=== PATIENT | female | born 1945 | race Caucasian/White ===

== ENCOUNTER 2018-02-01 10:38 | Inpatient (IN) | payer MEDICARE, OTHER, SELFPAY ==
[2018-01-25 13:55] VITALS: BMI 37.0
[2018-02-01] VITALS (15 sets, daily range): BP systolic 115–138; BP diastolic 57–89; PULSE 64–77; RESP 9–20; TEMP 36–37.2; O2SAT 18–100; BMI 35.9
[2018-02-01] MEDS: LACTATED RINGERS 1,000 ML 42 ML IV ×2 (11:01→12:51)
[2018-02-01] MEDS: VANCOMYCIN 1,000 MG/200 ML FROZ.PIGGY 133.333 MG IV (11:02)
--- NOTE | 2018-02-01 11:17 | PM.PREOP ---
Pre-operative Note Interval Note Pre-op Check: History & Physical Reviewed by Physician
--- NOTE | 2018-02-01 11:17 | PM.OP.1 ---
Operative Date/Time/Diagnoses - Date of procedure: 02/01/18 Time of procedure: 11:53 Pre-op diagnosis: Left hip OA Post-op diagnosis: same Procedure & Clinicians Procedure: Left total hip Same procedure as scheduled: Yes Indications: The patient has had progressively worsening left hip pain with radiographic changes consistent with arthritis. Non-operative management has failed and the patient has requested total hip replacement. The risks, benefits and alternatives to surgery were discussed with the patient prior to proceeding. Risks discussed included, but were not limited to, failure to relieve pain, leg length discrepancy, dislocation, stiffness, infection, nerve damage, deep venous thrombosis, pulmonary embolism, stroke, coma, heart attack, permanent paralysis and , as well as the potential need for eventual revision of the prosthetic. Surgeon: Monika Martines [employer]s Assistant: Jefferson Adams Anesthesia Type: Spinal Operative Notes Findings: Severe left hip OA, adequate stability Closure Type: primary Specimen(s): none sent Implants & Drains: Martines and Nephew anthology 7 standard, R3 52, + 0 Applied: drain(s) Estimated Blood Loss (mL): 300 Blood products transfused: none Procedure in detail: The patient was seen in the pre-operative area, where the patient identified the left hip as the operative site and this was marked with my initials. The patient received pre-operative antibiotics and was taken to the operating room and placed on the operative table in the right lateral decubitus position after satisfactory anesthesia. A inspector timers out was performed. The left leg was prepared from the ankle to the iliac crest with ChloroPrep in the usual fashion and draped through sterile drapes. The hip was approached through an approximately 20 cm incision centered over the greater trochanter and curving gently posteriorly as it went proximally. This was carried sharply to the fascia kristin, which was divided and retracted with a self retaining retractor. The trochanteric bursa was excised with care being taken to avoid the sciatic nerve, which was identified and protected throughout the case. The short external rotators were incised and the capsulomuscular flap was raised and tagged for later repair. The hip was dislocated, and a femoral neck osteotomy performed approximately 15 mm above the lesser trochanter. Retractors were placed around the femur. The canal was opened with a box cutting osteotome, followed by a T handled reamer and a lateralizing reamer. The chili pepper broach was then used, followed by sequential broaching until there was good stability of the broach in the femur. Retractors were placed to expose the acetabulum. The labrum and central soft tissues were removed. Reaming was performed initially going up in 2 mm increments, then 1 mm increments until good bite was obtained with an odd sized reamer. The cup 1 mm larger than the last reamer was then inserted using the appropriate anteversion guides. A trial neutral liner was placed. The broach was placed in the canal. A trial head and neck were then placed and the hip relocated and checked for leg length and stability. An intraoperative film confirmed the component position and no evidence of fracture. The patient was stable in the position of sleep, of squatting, and could be put through a range of motion with 45 degrees internal rotation without dislocation. At 90 degrees flexion, internal rotation to 70 was possible before dislocation. This was felt to be satisfactory and the appropriate components were opened, and the trials were removed. The acetabular liner was impacted into position. The final stem was then impacted into the prepared femoral canal. A brief Betadine soak was performed while trialing with head options. The hip was meticulously irrigated with normal saline. Finally the femoral head was impacted onto the stem. The acetabulum was cleared of all material and the hip relocated one final time. The capsulomuscular flap was then repaired to the greater trochanter though an awl hole using the tag sutures. The short external rotators were repaired with a black braided nylon. A deep drain was placed and brought out anteriorly. The fascia kristin was closed with black braided nylon. The subcutaneous layer was closed with barbed sutures and SteriStrips. An Aquacel Ag dressing was applied and the patient was taken to recovery having tolerated the procedure well. Complications: none Condition: stable Disposition: Acute Care Plan for aftercare: The patient will be maintained on a standard total hip replacement protocol with weight bearing as tolerated and posterior hip precautions. The patient will receive aspirin and sequential compression devices for DVT prophylaxis. The patient will be discharged home when safe for the home environment.
[2018-02-01] MEDS: CEFAZOLIN 2 GM/100 ML FROZ.PIGGY IV ×2 (11:50→21:12)
--- NOTE | 2018-02-01 12:42 | SUR.OPER ---
Right Lateral on padded OR bed. Gel axillary roll. Arms secured on padded armboard with pillows supporting top arm. gel pads under down arm. Padded hip positioner braces x4 - anterior and posterior chest and pelvis. Additional gel pad used anterior pelvis. Gel pad under bottom leg from knee to foot and secured with tape over sheet.
[2018-02-01] MEDS: BUPIVACAINE 0.25% W/ EPI 50 ML VIAL INJ (12:47)
[2018-02-01] MEDS: TRANEXAMIC ACID 1,000 MG VIAL 1000 MG INJ ×2 (12:48→13:45)
[2018-02-01] MEDS: SODIUM CHLORIDE IRRIG SOLUTION 250 ML, EPINEPHrine 1 MG IRR (12:48)
[2018-02-01] MEDS: BUPIVACAINE LIPOSOME 266 MG/20 ML VIAL INJ (12:48)
[2018-02-01] MEDS: POVIDONE-IODINE 15 ML, SODIUM CHLORIDE 0.9% 250 ML TOP (12:49)
--- NOTE | 2018-02-01 13:00 | DI.RAD.S_ITS ---
PROCEDURE: XR PELVIS 1-2V INDICATIONS: INNER OP HIP (PRACTICE) TECHNIQUE: Intra-operative view of the pelvis and hip acquired. [facility] [place], XR PELVIS WITH BILATERAL LATERAL HIPS, 10/18/2017, 14:42. FINDINGS: Bones: Intraoperative devices prior to placement of arthroplasty prostheses are in expected positions. No fractures or suspicious bony lesions. Soft tissues: Overlying surgical retractors are present, along with other intraoperative changes. IMPRESSION: Intraoperative device in anatomic alignment. Dictated by: Carolina Davenport M.D. on 02/01/2018 at 16:15 Approved by: Carolina Davenport M.D. on 02/01/2018 at 16:16
--- NOTE | 2018-02-01 13:00 | DI.RAD.S_ITS ---
PROCEDURE: XR HIP W PEL IF DONE LT 2V INDICATIONS: 73 year-old female with left hip arthroplasty. TECHNIQUE: AP pelvis and lateral view of the left hip acquired. COMPARISON: [facility], CR, XR PELVIS 1-2V, 02/01/2018, 13:16. [facility] [place], CR, XR PELVIS WITH BILATERAL LATERAL HIPS, 10/18/2017, 14:42. [facility] [place], CR, XR PELVIS WITH BILATERAL LATERAL HIPS, 06/16/2017, 8:00. [facility], CR, XR HIP 2 VIEWS LEFT, 07/21/2015, 14:37. [facility], CR, XR PELVIS WITH BILATERAL LATERAL HIPS, 08/19/2014, 14:08. FINDINGS: Bones: Patient is status post noncemented left hip arthroplasty, with hardware components in expected positions. The hip joint appears congruent. The visualized bony structures appear intact. Soft tissues: Overlying postoperative changes are noted, including a surgical drain. No suspicious soft tissue densities. IMPRESSION: Status post left hip arthroplasty, with hardware components in expected positions. Dictated by: Jerome Santana M.D. on 02/01/2018 at 16:51 Approved by: Jerome Santana M.D. on 02/01/2018 at 16:54
--- NOTE | 2018-02-01 14:15 | SUR.OPER ---
red-purple spots noted on left groin when drapes were removed. area not opened or raised. reddened indented area also noted on right pelvic area at the same time. due to pelvic positioning device. Dr. Martines notified.
[2018-02-01] MEDS: fentaNYL 100 MCG/2 ML INJ 50 MCG IV (14:51)
--- NOTE | 2018-02-01 15:10 | SUR.PHASEI ---
REPORT CALLED TO RUSLAN WOLFF ON ACUTE CARE FLOOR AT APPROX 1430. PT IN STABLE CONDITION, VSS. IV SITE CLEAR. SURGICAL SITE C/D/I. HEMOVAC INTACT AND DRAINING RED BLOOD. PT ABLE TO MOVE TOES ON LOWER EXTREMITY AND DULL SENSTATION RELATED TO SPINAL. SURGICAL EXTREMITY WARM TO TOUCH, +PULSE AND CAP REFILL WNL. PT TOLERATING ICE CHIPS WITHOUT ANY DIFFICULTLY. PT DENIES ANY NAUSEA. PT STATES PAIN TOLERABLE AT THIS TIME. PT SITTING UP AND TALKING TO RN. PT TRANSFERED TO ACUTE CARE FLOOR AT THIS TIME BY RUSLAN REGAN IN OPD.
[2018-02-01] MEDS: OXYCODONE IR 10 MG TABLET PO ×2 (17:02→21:18)
[2018-02-01] MEDS: LACTATED RINGERS 1,000 ML 100 ML IV (17:02)
[2018-02-01] MEDS: ATORVASTATIN 20 MG TABLET PO (21:12)
[2018-02-01] MEDS: ASPIRIN EC 81 MG TABLET PO (21:12)
[2018-02-01] MEDS: SENNOSIDES 8.6 MG TABLET 17.2 MG PO (21:12)
[2018-02-01] MEDS: LATANOPROST 0.005% OPHTH 2.5 ML 1 DROPS EYE-BOTH (21:13)
[2018-02-01] MEDS: DOCUSATE 100 MG CAPSULE PO (21:13)
[2018-02-01] MEDS: TRAMADOL 50 MG TABLET PO (23:29)
[2018-02-02] VITALS (7 sets, daily range): BP systolic 118–141; BP diastolic 66–77; PULSE 77–94; RESP 16–20; TEMP 36.7–37.2; O2SAT 94–99
[2018-02-02] MEDS: ONDANSETRON 4 MG/2 ML INJ IV (01:50)
--- NOTE | 2018-02-02 02:05 | PC.NURSE ---
C/O nausea and had 300cc of bile green emesis. Medicated with ZOFRAN 4MG IV as ordered. patient following hip precautions. Patient has excellent understanding of hip precautions.
[2018-02-02] MEDS: OXYCODONE IR 10 MG TABLET PO ×2 (03:39→09:12)
[2018-02-02] MEDS: METOCLOPRAMIDE 10 MG/2 ML INJ IV (03:59)
[2018-02-02] MEDS: LACTATED RINGERS 1,000 ML 100 ML IV (03:59)
[2018-02-02] MEDS: CEFAZOLIN 2 GM/100 ML FROZ.PIGGY IV (04:42)
[2018-02-02 05:48] LABS: Hematocrit 34.3 % (36-46); Hemoglobin 11.3 g/dL (12.0-16.0)
[2018-02-02] MEDS: ONDANSETRON 4 MG ODT PO ×2 (05:59→13:18)
[2018-02-02] MEDS: VENLAFAXINE ER 75 MG CAP PO (08:40)
[2018-02-02] MEDS: DOCUSATE 100 MG CAPSULE PO ×2 (08:40→20:46)
[2018-02-02] MEDS: ASPIRIN EC 81 MG TABLET PO ×2 (08:41→20:46)
[2018-02-02] MEDS: ACETAMINOPHEN 325 MG TABLET 650 MG PO (08:41)
--- NOTE | 2018-02-02 10:27 | PM.PNPO.1 ---
Subjective Date Patient Seen: 02/02/18 Time Patient Seen: 10:27 Interval history: Patient is s/p LT CHRISTINE by Dr. Martines. PD 1. Patient has a lot of N/V last night. Under control this am. Still having numbness from knee to mid hamilton area. Cannot lift leg. Pt wants to go to SNF after d/c from hospital and discharge planning is aware and working on SNF placement. Able to tolerate foods and liquids. Exam Vital Signs (past 8 hours): - 02/02/18 04:00 02/02/18 08:00 Temperature 98.6 F 98.6 F Pulse Rate 86 87 Respiratory Rate 16 16 Blood Pressure 118/69 127/71 H Pulse Oximetry 98 97 Oxygen Delivery Method Room Air Oxygen Flow Rate 1 Narrative Exam Narrative: Pt in chair. A&O x3. LT hip mod swelling. Aquacel dressing CDI. Numbness from below knee to mid hamilton. Able to dorsiflex and plantarflex ankle with full sensation in ankle. Not able to do leg lift. Jake calves soft and nontender. Hemovac drain dry. ABD soft and nondistended in 4 quadrants. Objective Labs Result Diagrams: 02/02/18 05:18 Labs: Laboratory Results - last 24 hr 02/02/18 05:18 Hgb 11.3 L Hct 34.3 L Assessment & Plan Post-op Postoperative Procedures Operation Date: 02/01/18 12:45 Actual Procedures Side Surgeon p Total Hip Arthroplasty Left Monika A MD Conrad s/p Lt CHRISTINE. PD 1. Pt to mobilize with PT. Hemovac drain d/c. Continue DVT prophylaxis with ASA BID. Fe and Vt c ordered. Plan to d/c to SNF if bed availble on Monday. Time Spent With Patient less than 15 minutes Quality VTE Deep Vein Thrombosis/Pulmonary Embolism Present on Admission: No
--- NOTE | 2018-02-02 10:48 | CM.DANOTE ---
DCP: assessment: Case received, EMR reviewed and met with pt, her sister and her friend. Introduced self and role. Pt is a 73 year old female who admitted yesterday for a planned L CHRISTINE. Surgeon: Dr. Rona Martines Payer: Medicare and CBIT A/S. PCP: Dr. Lynne Marinelli. Pt states that she lives alone and has been planning for rehab at snf level before she returns home. Snf choice list: discussed: She notes she researched and toured snf and wishes [facility] is there is a bed available. She also says that she knows Dr. Martines does not think this is best but says I do have the benefit with my insurance and I wish to use this. It has been my after hospital plan all along. Spoke with Ortho ERNA Osborn. She met with pt today, says to plan on snf d/c for his patient. Agrees to OT eval and treat (order placed now). Referral is into [facility]/Nick[facility]/business office and [facility]. Both are reviewing and will get back to this DCPlanner with decision by noon. Will update pt accordingly. P: [facility], pending acceptance Need: [facility] 02/04/18 or >
[2018-02-02] MEDS: ASCORBIC ACID 500 MG TABLET PO (10:49)
[2018-02-02] MEDS: FERROUS SULFATE 325 MG TABLET PO (10:49)
--- NOTE | 2018-02-02 11:00 | PT.IIE ---
Current Diagnoses Bilateral primary osteoarthritis of hip (02/01/18) Surgery Performed Operation Date: 02/01/18 12:45 Actual Procedures p Total Hip Arthroplasty(Left) - Monika Martines MD Surgical History (Last Updated 01/25/18 @ 14:20 by Chanda Vang RN) H/O: section (Acute) Hx of tonsillectomy (Acute) Medical History (Last Updated 01/25/18 @ 14:20 by Chanda Vang RN) Arthritis (Acute) Cataracts, bilateral (Acute) DDD (degenerative disc disease) (Acute) Depression (Acute) Diverticulitis (Acute) Glaucoma (Acute) Hyperlipidemia (Acute) Kidney stone (Acute) Low back pain (Acute) Skin cancer (Acute) Physical Therapy Inpatient Evaluation/Re-Eval M1 PT/OT-IP Prior Functional Status Start: 02/02/18 13:04 Freq: NEEDED Status: Active Protocol: Document 02/02/18 11:00 AB (Rec: 02/02/18 13:10 [id number]) Medical Review Prior Functional Status Medical History Reviewed Yes Mobility and Gait pt stated that she is independent with all mobilities and ambulation without AD. Prior Functional Level (Other details) pt was still able to drive Social History Household Members none Living Arrangements House Number of Floors (Floors) One Floor Number of Stairs To Enter/Railing? 1 step entry Home Environment High Toilet Tub/Shower Home Equipment Four Wheel Walker Straight Cane Grab Bars Near Toilet Employment Status Retired M2 PT-IP Current Condition Start: 02/02/18 13:04 Freq: NEEDED Status: Active Protocol: Document 02/02/18 11:00 AB (Rec: 02/02/18 13:10 [id number]) Physical Therapy Current Condition Current Condition Evaluation Date 02/02/18 Treatment Diagnosis s/p L CHRISTINE Onset Date 02/01/18 Precautions Posterior Hip Precautions No Hip Flexion > 90 degrees No Hip Internal Rotation No Hip Adduction Weight Bearing Status Weight Bearing Status Weight Bear as Tolerated M3 PT-IP Subjective Start: 02/02/18 13:04 Freq: NEEDED Status: Active Protocol: Document 02/02/18 11:00 AB (Rec: 02/02/18 13:10 [id number]) Subjective Physical Therapy Visit Type Type Initial Evaluation Visit Start Time 11:00 Visit Stop Time 11:39 Total Visit Minutes 39 Number of WINDOWS SERVER SPECIALIST Visits 0 Physical Therapy Visit Comments Patient Comments i am still numb on my LLE M4 PT-IP Mobility and Gait Start: 02/02/18 13:04 Freq: NEEDED Status: Active Protocol: Document 02/02/18 11:00 AB (Rec: 02/02/18 13:10 [id number]) PT-Bed Mobility Assessment Supine to Sit Supine to Sit Moderate Assistance PT-Transfer Assessment Sit to and From Stand Sit to and from Stand Minimal Assistance Equipment Transfer Assistive Device Gait Belt Front Wheeled Walker Transfers Transfer Destination Bedside Commode Transfer Technique Stand Step Pivot Transfer Ability Level of Assist Minimal Assistance Gait Assessment Gait Gait Assistance Required: Minimum Assistance Distance (Feet) (feet) 15 Able to Maintain Weight Bearing Status Yes During Gait Assistive Devices Assistive Device Gait Belt Front Wheeled Walker Orthotic/Prosthetic Devices or Brace: No Gait Deviations General Gait Pattern Antalgic Decreased Stride Length Decreased Feet Clearance Factors Limiting Gait Function Factors Limiting Gait Function Decreased Activity Tolerance Decreased Strength Limited Range of Motion Pain Poor Balance Poor Safety Awareness PT-Balance Assessment Sitting Balance and Reactions Static Sitting Balance Ability Good Dynamic Sitting Balance Ability Good Standing Balance and Reactions Static Standing Balance Ability Fair Dynamic Standing Balance Ability Fair M5 PT-IP Objective Assessments Start: 02/02/18 13:04 Freq: NEEDED Status: Active Protocol: Document 02/02/18 11:00 AB (Rec: 02/02/18 13:10 [id number]) Orientation Orientation/Cognition Level of Alertness Alert Orientation Name Age Birthday Month Date Year Day of Week Place Situation Safety Awareness Decreased Safety Awareness Gross Range of Motion Lower Extremity ROM Assessment Within Functional Limits Strength Lower Extremity Strength Assessment Left Impaired Knee 3+/5 Sensation Assessment Sensation Sensation Description Numbness Comments Sensation Comments c/o LLE numbness from knee down to ankle M6 PT-IP Treatment Start: 02/02/18 13:04 Freq: NEEDED Status: Active Protocol: Document 02/02/18 11:00 AB (Rec: 02/02/18 13:10 AB [id number]) Physical Therapy Treatment Education Education Provided Precautions Weight Bearing Status Post-Op Packet Safety M7 PT-IP Assessment and Plan Start: 02/02/18 13:04 Freq: NEEDED Status: Active Protocol: Document 02/02/18 11:00 AB (Rec: 02/02/18 13:10 [id number]) PT Summary Assessment and Plan Potential Rehabilitation Potential Fair Status of Condition at Evaluation Evolving Summary Impairments Pain ROM Strength Balance Coordination Sensation Tone Cognition Bed Mobility Transfers Gait Activity Tolerance Assessment Summary pt requiring one person assist with mobility. pt lives alone and does not have anybody to assist her at home. pt will need SNF rehab to improve mobility and independence prior to d/c home . Goals Bed Mobility Goal Standby Assistance Transfer Goal Standby Assistance Gait Goal Standby Assistance Gait Distance 100 Other Goals up/down 1 step using FWW Days to Meet Goals 3 Frequency of Treatment Frequency Of Treatment Twice a Day Treatment Plan Physical Therapy Treatment Plan Bed Mobility Training Transfer Training Gait Training Therapeutic Exercise Balance Retraining Post Op Education Discharge Planning Hot or Cold Pack Neuromuscular Re-ed Coordination Retraining Manual Therapy Other Recommendations and Next Treatment ambulation Focus Recommendations To Nursing Amount of Assist Needed 1 Person Assist Discharge Recommendations PT Discharge Recommendations SNF Rehab Equipment Needed for Home Before FWW if pt is going home Discharge
--- NOTE | 2018-02-02 11:05 | PC.NURSE ---
AM NOTE - alert, states did not sleep well last night, episodes nausea and emesis and pain lle, reports 7 on scale 0/10 and then when assisted up to void, increased to 11, ra 95%, hr 86, continues with some numbness lle from mid calf to just above her l knee, able wiggle toes and ankle wave, skin pink, aquacell dsg with few spots serosang, hemovac unable to compress and some leakage around site, in this am and per discussion, hemovac was dc'd, discussed taking medication with food, no nausea with breakfast and ate portion, given oxycodone 10mg po with yogurt and pt liudmila meds w/o further nausea and reported pain much improved to 4 on scale 0/10, sitting in chair more comfortably, visiting with friends.
[2018-02-02] MEDS: OXYCODONE IR 5 MG TABLET 10 MG PO ×4 (13:22→23:52)
--- NOTE | 2018-02-02 16:28 | OT.IP.TRT ---
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
--- NOTE | 2018-02-02 16:56 | PT.IPTN ---
Current Diagnoses Bilateral primary osteoarthritis of hip (02/01/18) Surgery Performed Operation Date: 02/01/18 12:45 Actual Procedures p Total Hip Arthroplasty(Left) - Monika Martines MD Physical Therapy Treatment Note M2 PT-IP Current Condition Start: 02/02/18 13:04 Freq: NEEDED Status: Active Protocol: Document 02/02/18 11:00 AB (Rec: 02/02/18 13:10 AB [id number]) Physical Therapy Current Condition Current Condition Evaluation Date 02/02/18 Treatment Diagnosis s/p L CHRISTINE Onset Date 02/01/18 Precautions Posterior Hip Precautions No Hip Flexion > 90 degrees No Hip Internal Rotation No Hip Adduction Weight Bearing Status Weight Bearing Status Weight Bear as Tolerated M3 PT-IP Subjective Start: 02/02/18 13:04 Freq: NEEDED Status: Active Protocol: Document 02/02/18 16:55 GGD (Rec: 02/02/18 16:56 GGD [id number]) Subjective Physical Therapy Visit Type Type Patient Refusal Notes States that she is tired and hasn't slept in days. She would like to wait until later to get up. Recommendations To Nursing Amount of Assist Needed 1 Person Assist Discharge Recommendations PT Discharge Recommendations SNF Rehab Equipment Needed for Home Before FWW if pt is going home Discharge
[2018-02-02] MEDS: ATORVASTATIN 20 MG TABLET PO (20:46)
[2018-02-02] MEDS: LATANOPROST 0.005% OPHTH 2.5 ML 1 DROPS EYE-BOTH (20:46)
[2018-02-02] MEDS: SENNOSIDES 8.6 MG TABLET 17.2 MG PO (20:47)
[2018-02-03] MEDS: OXYCODONE IR 5 MG TABLET PO ×2 (03:08→08:24)
[2018-02-03] MEDS: ACETAMINOPHEN 325 MG TABLET 650 MG PO (03:09)
[2018-02-03 03:24] VITALS: BP 122/69; PULSE 87; RESP 20; TEMP 37.1; O2SAT 94
[2018-02-03] MEDS: OXYCODONE IR 5 MG TABLET 10 MG PO ×2 (07:40→13:03)
[2018-02-03 08:00] VITALS: BP 134/75; PULSE 88; RESP 16; TEMP 36.6; O2SAT 97
[2018-02-03] MEDS: VENLAFAXINE ER 75 MG CAP PO (08:18)
[2018-02-03] MEDS: IBUPROFEN 400 MG TABLET PO (08:18)
[2018-02-03] MEDS: FERROUS SULFATE 325 MG TABLET PO (08:18)
[2018-02-03] MEDS: DOCUSATE 100 MG CAPSULE PO ×2 (08:18→20:31)
[2018-02-03] MEDS: ASPIRIN EC 81 MG TABLET PO ×2 (08:18→20:31)
[2018-02-03] MEDS: ASCORBIC ACID 500 MG TABLET PO (08:18)
--- NOTE | 2018-02-03 09:40 | PT.IPTN ---
Current Diagnoses Bilateral primary osteoarthritis of hip (02/01/18) Surgery Performed Operation Date: 02/01/18 12:45 Actual Procedures p Total Hip Arthroplasty(Left) - Monika Martines MD Physical Therapy Treatment Note M2 PT-IP Current Condition Start: 02/02/18 13:04 Freq: NEEDED Status: Active Protocol: Document 02/02/18 11:00 AB (Rec: 02/02/18 13:10 AB [id number]) Physical Therapy Current Condition Current Condition Evaluation Date 02/02/18 Treatment Diagnosis s/p L CHRISTINE Onset Date 02/01/18 Precautions Posterior Hip Precautions No Hip Flexion > 90 degrees No Hip Internal Rotation No Hip Adduction Weight Bearing Status Weight Bearing Status Weight Bear as Tolerated M3 PT-IP Subjective Start: 02/02/18 13:04 Freq: NEEDED Status: Active Protocol: Document 02/03/18 09:40 GGD (Rec: 02/03/18 12:12 GGD [email or web address]) Subjective Physical Therapy Visit Type Type Treatment Note Visit Start Time 09:15 Visit Stop Time 09:40 Total Visit Minutes 25 Number of FELTING MACHINE OPERATOR Visits 1 Physical Therapy Visit Comments Patient Comments Pt states that the numbness has gone away. Therapy Pain Assessment Pain When Pain Assessed At Rest Pain Present Pain Present Denied Pain M4 PT-IP Mobility and Gait Start: 02/02/18 13:04 Freq: NEEDED Status: Active Protocol: Document 02/03/18 09:40 GGD (Rec: 02/03/18 12:12 GGD [email or web address]) PT-Bed Mobility Assessment Supine to Sit Supine to Sit Moderate Assistance Sit to Supine Sit to Supine Minimal Assistance Scooting Scooting to Edge of Bed Standby Assistance PT-Transfer Assessment Sit to and From Stand Sit to and from Stand Contact Guard Assistance Use of Upper Extremities Equipment Transfer Assistive Device Gait Belt Front Wheeled Walker Transfers Transfer Destination Bed Toilet Gait Assessment Gait Gait Assistance Required: Contact Guard Assist Distance (Feet) (feet) 30 Assistive Devices Assistive Device Gait Belt Front Wheeled Walker Orthotic/Prosthetic Devices or Brace: No Gait Deviations General Gait Pattern Antalgic Decreased Stride Length Decreased Feet Clearance Factors Limiting Gait Function Factors Limiting Gait Function Decreased Activity Tolerance Decreased Strength Limited Range of Motion Pain M5 PT-IP Objective Assessments Start: 02/02/18 13:04 Freq: NEEDED Status: Active Protocol: Document 02/02/18 11:00 AB (Rec: 02/02/18 13:10 AB [id number]) Orientation Orientation/Cognition Level of Alertness Alert Orientation Name Age Birthday Month Date Year Day of Week Place Situation Safety Awareness Decreased Safety Awareness Gross Range of Motion Lower Extremity ROM Assessment Within Functional Limits Strength Lower Extremity Strength Assessment Left Impaired Knee 3+/5 Sensation Assessment Sensation Sensation Description Numbness Comments Sensation Comments c/o LLE numbness from knee down to ankle M6 PT-IP Treatment Start: 02/02/18 13:04 Freq: NEEDED Status: Active Protocol: Document 02/03/18 09:40 GGD (Rec: 02/03/18 12:12 GGD [email or web address]) Physical Therapy Treatment Exercises Exercises Ankle Pumps Gluteal Sets Quad Sets Heel Slides Education Education Provided Precautions M7 PT-IP Assessment and Plan Start: 02/02/18 13:04 Freq: NEEDED Status: Active Protocol: Document 02/03/18 09:40 GGD (Rec: 02/03/18 12:12 GGD [email or web address]) PT Summary Assessment and Plan Summary Assessment Summary Pt improving with mobility. She needs assist with bed mobility. Frequency of Treatment Frequency Of Treatment Twice a Day Treatment Plan Physical Therapy Treatment Plan Bed Mobility Training Transfer Training Gait Training Therapeutic Exercise Balance Retraining Post Op Education Discharge Planning Other Recommendations and Next Treatment Progress gait. Focus Recommendations To Nursing Amount of Assist Needed 1 Person Assist Discharge Recommendations PT Discharge Recommendations SNF Rehab Equipment Needed for Home Before FWW if pt is going home Discharge
[2018-02-03 12:00] VITALS: BP 131/73; PULSE 85; RESP 16; TEMP 36.3; O2SAT 95
--- NOTE | 2018-02-03 12:24 | PM.PNPO.1 ---
Subjective Date Patient Seen: 02/03/18 Time Patient Seen: 12:24 Interval history: Hospital day 3, postop day 2 following left posterior total hip arthroplasty by Dr. Martines. Patient remained stable postoperatively. Patient does live alone and is anticipating going to SNF. PT also feels patient would benefit from SNF because of limited function. Did have some left leg weakness yesterday that is improved today. Using oxycodone for pain. Exam Vital Signs (past 8 hours): - 02/03/18 08:00 Temperature 97.9 F Pulse Rate 88 Respiratory Rate 16 Blood Pressure 134/75 H Pulse Oximetry 97 Oxygen Delivery Method Room Air Oxygen Flow Rate 1 Narrative Exam Narrative: Alert, oriented no acute distress resting in bed. Legs. Aquacel dressing to the left hip is dry without drainage or inflammation. No calf pain or swelling. Pulses symmetrical. Objective Labs Result Diagrams: 02/02/18 05:18 Assessment & Plan Post-op Postoperative Procedures Operation Date: 02/01/18 12:45 Actual Procedures Side Surgeon p Total Hip Arthroplasty Left Monika Martines MD Plan: Patient will continue work with physical therapy today. Anticipate discharge to SNF tomorrow if stable. Time Spent With Patient less than 15 minutes Quality VTE Deep Vein Thrombosis/Pulmonary Embolism Present on Admission: No
[2018-02-03] MEDS: ONDANSETRON 4 MG ODT PO (15:08)
[2018-02-03 15:59] VITALS: BP 121/76; PULSE 79; RESP 16; TEMP 36.7; O2SAT 96
[2018-02-03] MEDS: METOCLOPRAMIDE 10 MG/2 ML INJ IV (16:34)
--- NOTE | 2018-02-03 16:54 | PT.IPTN ---
Current Diagnoses Bilateral primary osteoarthritis of hip (02/01/18) Surgery Performed Operation Date: 02/01/18 12:45 Actual Procedures p Total Hip Arthroplasty(Left) - Monika Martines MD Physical Therapy Treatment Note M2 PT-IP Current Condition Start: 02/02/18 13:04 Freq: NEEDED Status: Active Protocol: Document 02/02/18 11:00 AB (Rec: 02/02/18 13:10 AB [id number]) Physical Therapy Current Condition Current Condition Evaluation Date 02/02/18 Treatment Diagnosis s/p L CHRISTINE Onset Date 02/01/18 Precautions Posterior Hip Precautions No Hip Flexion > 90 degrees No Hip Internal Rotation No Hip Adduction Weight Bearing Status Weight Bearing Status Weight Bear as Tolerated M3 PT-IP Subjective Start: 02/02/18 13:04 Freq: NEEDED Status: Active Protocol: Document 02/03/18 16:45 GGD (Rec: 02/03/18 16:54 GGD [email or web address]) Subjective Physical Therapy Visit Type Type Treatment Note Visit Start Time 16:20 Visit Stop Time 16:45 Total Visit Minutes 25 Number of [employer] Visits 2 Physical Therapy Visit Comments Patient Comments Pt states she doing a little better. Therapy Pain Assessment Pain When Pain Assessed At Rest Pain Present Pain Present Pain Reported Location Left Hip Intensity 4 M4 PT-IP Mobility and Gait Start: 02/02/18 13:04 Freq: NEEDED Status: Active Protocol: Document 02/03/18 16:45 GGD (Rec: 02/03/18 16:54 GGD [email or web address]) PT-Bed Mobility Assessment Supine to Sit Supine to Sit Minimal Assistance Sit to Supine Sit to Supine Minimal Assistance Scooting Scooting to Edge of Bed Standby Assistance PT-Transfer Assessment Sit to and From Stand Sit to and from Stand Contact Guard Assistance Use of Upper Extremities Equipment Transfer Assistive Device Gait Belt Front Wheeled Walker Transfers Transfer Destination Bed Toilet Gait Assessment Gait Gait Assistance Required: Contact Guard Assist Distance (Feet) (feet) 30 Assistive Devices Assistive Device Gait Belt Front Wheeled Walker Orthotic/Prosthetic Devices or Brace: No Gait Deviations General Gait Pattern Antalgic Decreased Stride Length Decreased Feet Clearance Factors Limiting Gait Function Factors Limiting Gait Function Decreased Activity Tolerance Decreased Strength Limited Range of Motion Pain M5 PT-IP Objective Assessments Start: 02/02/18 13:04 Freq: NEEDED Status: Active Protocol: Document 02/02/18 11:00 AB (Rec: 02/02/18 13:10 AB [id number]) Orientation Orientation/Cognition Level of Alertness Alert Orientation Name Age Birthday Month Date Year Day of Week Place Situation Safety Awareness Decreased Safety Awareness Gross Range of Motion Lower Extremity ROM Assessment Within Functional Limits Strength Lower Extremity Strength Assessment Left Impaired Knee 3+/5 Sensation Assessment Sensation Sensation Description Numbness Comments Sensation Comments c/o LLE numbness from knee down to ankle M6 PT-IP Treatment Start: 02/02/18 13:04 Freq: NEEDED Status: Active Protocol: Document 02/03/18 16:45 GGD (Rec: 02/03/18 16:54 GGD [email or web address]) Physical Therapy Treatment Exercises Exercises Ankle Pumps Gluteal Sets Quad Sets Heel Slides Education Education Provided Precautions M7 PT-IP Assessment and Plan Start: 02/02/18 13:04 Freq: NEEDED Status: Active Protocol: Document 02/03/18 16:45 GGD (Rec: 02/03/18 16:54 GGD [email or web address]) PT Summary Assessment and Plan Summary Assessment Summary Pt was limit in mobility, due to pain and nausea. Frequency of Treatment Frequency Of Treatment Twice a Day Treatment Plan Physical Therapy Treatment Plan Bed Mobility Training Transfer Training Gait Training Therapeutic Exercise Balance Retraining Post Op Education Discharge Planning Other Recommendations and Next Treatment Progress gait. Focus Recommendations To Nursing Amount of Assist Needed 1 Person Assist Discharge Recommendations PT Discharge Recommendations SNF Rehab
[2018-02-03] MEDS: LATANOPROST 0.005% OPHTH 2.5 ML 1 DROPS EYE-BOTH (20:30)
[2018-02-03] MEDS: SENNOSIDES 8.6 MG TABLET 17.2 MG PO (20:30)
[2018-02-03] MEDS: ATORVASTATIN 20 MG TABLET PO (20:31)
[2018-02-03] MEDS: TRAMADOL 50 MG TABLET 100 MG PO (20:39)
[2018-02-03 20:43] VITALS: BP 118/70; PULSE 82; RESP 16; TEMP 36.9; O2SAT 99
[2018-02-03 23:00] VITALS: BP 129/70; PULSE 93; RESP 16; TEMP 37.7; O2SAT 95
[2018-02-04] VITALS: O2SAT 97
[2018-02-04] MEDS: ACETAMINOPHEN 325 MG TABLET 650 MG PO (01:47)
[2018-02-04] MEDS: TRAMADOL 50 MG TABLET 100 MG PO (03:34)
--- NOTE | 2018-02-04 04:40 | PC.NURSE ---
Assumed care of pt from outgoing shift at 2300 6-30. Pt awake, compliant with assessments. pt uncomfortable. adjusted pillows etc. Pt uses call light. up to BR with walker and SBA. Pt steady on feet. belongings and call light within reach. will continue to monitor pt for safety. 0230 update- Pt very uncomfortable and crying in bed. pt given tylenol and cannot have tramadol yet. Pt offered to change bed. pt up to BR again, while staff changed bed. pt states this is much more comfortable and feels better already. warm blanket placed on pts back. pain med given per OCT. will continue to monitor. PT bed alarm on. side rails upx4 per pt request. belongings and call light within reach.
[2018-02-04 05:54] VITALS: RESP 16
[2018-02-04 08:00] VITALS: BP 120/68; PULSE 84; RESP 16; TEMP 36.5; O2SAT 98
[2018-02-04] MEDS: FERROUS SULFATE 325 MG TABLET PO (09:03)
[2018-02-04] MEDS: IBUPROFEN 400 MG TABLET PO (09:03)
[2018-02-04] MEDS: VENLAFAXINE ER 75 MG CAP PO (09:03)
[2018-02-04] MEDS: ASPIRIN EC 81 MG TABLET PO (09:04)
[2018-02-04] MEDS: DOCUSATE 100 MG CAPSULE PO (09:04)
[2018-02-04] MEDS: ASCORBIC ACID 500 MG TABLET PO (09:04)
--- NOTE | 2018-02-04 10:53 | OT.IP.TRT ---
Current Diagnoses Bilateral primary osteoarthritis of hip (02/01/18) Surgery Performed Operation Date: 02/01/18 12:45 Actual Procedures p Total Hip Arthroplasty(Left) - Monika Martines MD Occupational Therapy Treatment Note M3 OT- IP Subjective and Pain Start: 02/02/18 16:26 Freq: Status: Active Protocol: Document 02/04/18 10:41 [facility] (Rec: 02/04/18 10:53 [facility] [id number]) OT- Subjective Occupational Therapy Visit Type Type Treatment Note Visit Start Time 09:55 Visit Stop Time 10:40 Total Visit Minutes 45 Occupational Therapy Visit Comments Patient/Caregiver Goals Pt feels ready to go to rehab. OT Pain Assessment Pain When Pain Assessed At Rest Pain Present Pain Present Denied Pain M4 OT- IP ADL's Start: 02/02/18 16:26 Freq: Status: Active Protocol: Document 02/04/18 10:41 [facility] (Rec: 02/04/18 10:53 [facility] [id number]) OT ADL-Grooming General Evaluation Grooming Ability Standby Assistance Comments OT Grooming Comments VC to keep FWW in front of her . OT ADL-Dressing General Eval Upper Body Dressing Ability Standby Assistance Lower Body Dressing Ability Standby Assistance Areas Needing Assistance Retrieving/Set-up of Clothing Assistive Devices Dressing Assistive Devices Risk Officer Comments OT Dressing Comments VC to dress left leg first. OT ADL-Toileting General Evaluation Toileting Ability Standby Assistance Comments OT Toileting Comments Educated to stand to wipe and may benefit from toilet aid. OT ADL-Bathing Bathing Type Bathing Type Shower General Evaluation Bathing Ability Minimal Assistance Areas Needing Assistance Retrieving/Setting Up Items Wash/Dry Back Devices Bathing Equipment Long Handled Sponge or Family Advocate Held Shower Sprayer Shower Chair with Arms Grab Bars Comments OT Bathing Comments CGA for balance while standing to do pericare needs, vc not to twist over LLE. M6 OT- IP Functional Cognition Start: 02/02/18 16:26 Freq: Status: Active Protocol: Document 02/04/18 10:41 [facility] (Rec: 02/04/18 10:53 [facility] [id number]) Cognitive Factors Limiting Selfcare Function Cognitive Ability Level of Alertness Alert Patient Orientation Name Age Birthday Month Date Year Day of Week Place Situation Attention Span Ability Capable of Focused Attention Capable of Sustained Attention Ability to Follow Commands Able to Follow Multi-Step Commands Memory Description No Deficits Noted Safety Awareness Decreased Ability to Apply Precautions Problem Solving Ability Needs Assist to Identify Solutions Cognitive Comments Cognitive Assessment Comments Still needing occasional vc for incorporation of hip precautions for all needs. M7 OT- IP Mobility and Balance Start: 02/02/18 16:26 Freq: Status: Active Protocol: Document 02/04/18 10:41 [facility] (Rec: 02/04/18 10:53 [facility] [email or web address]) OT- Bed Mobility Assessment Rolling Type of Rolling Roll to Left Supine to Sit Supine to Sit Assist Standby Assistance Sit to Supine Sit to Supine Assist Minimal Assistance OT-Transfer Assessment Sit to and From Stand Sit to and from Stand Contact Guard Assistance Transfers Transfer Ability Contact Guard Assistance Technique Transfer Destination Bed Bedside Commode Chair Shower Stall Devices Transfer Assistive Devices Bed Rail Front Wheeled Walker Comments Mobility Comments VC to slow down can be a little impulsive, needing assist to move LLE to onto the bed. OT- Balance Assessment Sitting Balance and Reactions Static Sitting Balance Ability Normal Dynamic Sitting Balance Ability Normal Standing Balance and Reactions Static Standing Balance Ability Good Dynamic Standing Balance Ability Fair M9 OT- IP Assessment and Plan Start: 02/02/18 16:26 Freq: Status: Active Protocol: Document 02/04/18 10:41 [facility] (Rec: 02/04/18 10:53 [facility] [id number]) OT Summary Assessment and Plan Potential Rehabilitation Potential Excellent Analytic Complexity at Evaluation Low Summary OT Impairments Pain Strength Functional Mobility Dressing Toileting Bathing Progress Towards Goals Progressing Toward Goals Assessment Summary Pt doing well and and expected to go to rehab to day and continue to work on independence with ADl's and functional mobility. Goals Dressing Goal Standby Assistance Toileting Goal Standby Assistance Bathing Goal Standby Assistance Toilet Transfer Goal Independent Shower Transfer Goal Standby Assistance Days to Meet Goals 2 Frequency of Treatment Frequency Of Treatment Once a Day Treatment Plan OT Treatment Plan ADL Training Functional Mobility Patient/Family Education Discharge Planning Discharge Recommendations OT Discharge Recommendations SNF Rehab
--- NOTE | 2018-02-04 11:40 | PT.IPTN ---
Current Diagnoses Bilateral primary osteoarthritis of hip (02/01/18) Surgery Performed Operation Date: 02/01/18 12:45 Actual Procedures p Total Hip Arthroplasty(Left) - Monika Martines MD Physical Therapy Treatment Note M2 PT-IP Current Condition Start: 02/02/18 13:04 Freq: NEEDED Status: Active Protocol: Document 02/04/18 11:15 TMS (Rec: 02/04/18 12:14 TMS [id number]) Physical Therapy Current Condition Current Condition Evaluation Date 02/02/18 Treatment Diagnosis s/p L CHRISTINE Onset Date 02/01/18 Precautions Posterior Hip Precautions No Hip Flexion > 90 degrees No Hip Internal Rotation No Hip Adduction Weight Bearing Status Weight Bearing Status Weight Bear as Tolerated M3 PT-IP Subjective Start: 02/02/18 13:04 Freq: NEEDED Status: Active Protocol: Document 02/04/18 11:15 TMS (Rec: 02/04/18 12:14 TMS [id number]) Subjective Physical Therapy Visit Type Type Treatment Note Number of [employer] Visits 3 Physical Therapy Visit Comments Patient Comments Pt. states she just had a shower, not ready to walk again. Willing to do bed exercises. Therapy Pain Assessment Pain When Pain Assessed At Rest Pain Present Pain Present Denied Pain M4 PT-IP Mobility and Gait Start: 02/02/18 13:04 Freq: NEEDED Status: Active Protocol: Document 02/03/18 16:45 GGD (Rec: 02/03/18 16:54 GGD [email or web address]) PT-Bed Mobility Assessment Supine to Sit Supine to Sit Minimal Assistance Sit to Supine Sit to Supine Minimal Assistance Scooting Scooting to Edge of Bed Standby Assistance PT-Transfer Assessment Sit to and From Stand Sit to and from Stand Contact Guard Assistance Use of Upper Extremities Equipment Transfer Assistive Device Gait Belt Front Wheeled Walker Transfers Transfer Destination Bed Toilet Gait Assessment Gait Gait Assistance Required: Contact Guard Assist Distance (Feet) (feet) 30 Assistive Devices Assistive Device Gait Belt Front Wheeled Walker Orthotic/Prosthetic Devices or Brace: No Gait Deviations General Gait Pattern Antalgic Decreased Stride Length Decreased Feet Clearance Factors Limiting Gait Function Factors Limiting Gait Function Decreased Activity Tolerance Decreased Strength Limited Range of Motion Pain M5 PT-IP Objective Assessments Start: 02/02/18 13:04 Freq: NEEDED Status: Active Protocol: Document 02/02/18 11:00 AB (Rec: 02/02/18 13:10 AB [id number]) Orientation Orientation/Cognition Level of Alertness Alert Orientation Name Age Birthday Month Date Year Day of Week Place Situation Safety Awareness Decreased Safety Awareness Gross Range of Motion Lower Extremity ROM Assessment Within Functional Limits Strength Lower Extremity Strength Assessment Left Impaired Knee 3+/5 Sensation Assessment Sensation Sensation Description Numbness Comments Sensation Comments c/o LLE numbness from knee down to ankle M6 PT-IP Treatment Start: 02/02/18 13:04 Freq: NEEDED Status: Active Protocol: Document 02/04/18 11:15 TMS (Rec: 02/04/18 12:14 TMS [id number]) Physical Therapy Treatment Exercises Exercises Ankle Pumps Gluteal Sets Quad Sets Heel Slides Supine Hip Abduction Education Education Provided Precautions M7 PT-IP Assessment and Plan Start: 02/02/18 13:04 Freq: NEEDED Status: Active Protocol: Document 02/04/18 11:15 TMS (Rec: 02/04/18 12:14 TMS [id number]) PT Summary Assessment and Plan Summary Assessment Summary Pt. needed assist with heelslides and hip abduction. Cues for precautions. Frequency of Treatment Frequency Of Treatment Twice a Day Treatment Plan Physical Therapy Treatment Plan Bed Mobility Training Transfer Training Gait Training Therapeutic Exercise Balance Retraining Post Op Education Discharge Planning Recommendations To Nursing Amount of Assist Needed 1 Person Assist Discharge Recommendations PT Discharge Recommendations SNF Rehab
[2018-02-04 12:00] VITALS: BP 155/78; PULSE 83; RESP 18; TEMP 36.6; O2SAT 97
--- NOTE | 2018-02-04 12:58 | P.DS_ITS ---
History of Present Illness Chief complaint: [id number] LEFT TOTAL HIP ARTHROPLASTY Discharge Providers Date of admission: 02/01/18 10:38 Primary care physician: Cricket Marinelli MD Consults: 02/01/18 16:33 Consult to Discharge Planning Routine Comment: ecf Consult to Physical Therapy Evaluate & Treat Comment: Physician Instructions: post op CHRISTINE protocol 02/02/18 10:19 Consult to Occupational Therapy Evaluate & Treat Comment: Physician Instructions: Evaluate and treat 02/02/18 11:00 Consult to Occupational Therapy Evaluate & Treat Comment: Physician Instructions: Evaluate and treat Discharge provider: Monika Martines MD Summary Discharge Diagnosis: Left total hip arthroplasty, obesity Hospital Course: Brittanie and underwent an left total hip arthroplasty. She did well with anesthesia that have some problems associated with nausea postoperatively and pain medications. She worked with physical therapy and became standby assist but required additional physical therapy. Her pain medications and pain were controlled with tramadol, Tylenol and ibuprofen. Time Spent with Patient Less than 30 minutes Exam Vital Signs (past 8 hours): - 02/04/18 05:54 02/04/18 08:00 02/04/18 12:00 Temperature 97.7 F 97.9 F Pulse Rate 84 83 Respiratory Rate 16 16 18 Blood Pressure 120/68 155/78 H Pulse Oximetry 98 97 Oxygen Delivery Method Room Air Oxygen Flow Rate 0 Narrative Exam Narrative: Her vital signs were stable, she was alert she was oriented, she had some mild residual weakness in her hip flexor, her calfs were soft and benign, her dressing was intact and benign. Objective Labs Result Diagrams: 02/02/18 05:18 Discharge Plan Discharge Plan Patient Disposition: SNF Transfer to: [facility] Transportation: Wheelchair Discharge comment: Doing well with therapy. Anticipate short 3-4 day stay. I certify the postop hospital intermediate care is medically necessary on a continuing basis for any conditions for which he/ she received care during this hospitalization.: Yes The receiving facility has agreed to accept transfer and provide medical treatment.: Yes Discharge Med Rec/Prescriptions Prescriptions: New tramadol 50 mg Tablet 100 mg PO QID PRN (Reason: Pain, Moderate (4-6)) Qty: 60 RF: 0 aspirin 81 mg Tablet,Delayed Release (Dr/Ec) 81 mg PO BID Qty: 60 RF: 0 docusate sodium 100 mg Capsule 100 mg PO BID Qty: 30 RF: 0 ibuprofen 400 mg Tablet See Label Instructions .ROUTE .COMPLEX Qty: 60 RF: 0 latanoprost [Xalatan] 0.005 % Drops 1 drops EYE-BOTH BEDTIME Qty: 10 RF: 0 venlafaxine [Effexor XR] 75 mg Capsule,Extended Release 24hr 75 mg PO DAILY Qty: 10 RF: 0 diphenhydramine HCl 50 mg/mL Solution 25 mg IV Q3HR PRN (Reason: PRURITUS) Qty: 1 RF: 0 ascorbic acid (vitamin C) [Vitamin C] 500 mg Tablet 500 mg PO DAILY Qty: 60 RF: 0 ferrous sulfate 325 mg (65 mg iron) Tablet 325 mg PO DAILY Qty: 30 RF: 0 bisacodyl 10 mg Suppository 10 mg DE DAILY PRN (Reason: Constipation) Qty: 5 RF: 0 acetaminophen 325 mg Tablet 650 mg PO Q6HR PRN (Reason: Pain, Mild (1-3)) Qty: 90 RF: 0 Discontinued atorvastatin [Lipitor] 20 mg Tablet 20 mg PO QAM RF: 0 No Action latanoprost 0.005 % Drops 1 drp EYE-BOTH BEDTIME RF: 0 venlafaxine [Effexor XR] 75 mg Capsule,Extended Release 24hr 75 mg PO QAM RF: 0 ibuprofen 200 mg Capsule 400 mg PO QAM RF: 0 aspirin 81 mg Tablet,Delayed Release (Dr/Ec) 81 mg PO DAILY RF: 0 tramadol 50 mg Tablet 50 mg PO DAILY PRN (Reason: pain) RF: 0 Follow up/Referrals: Cricket Marinelli MD [Primary Care Provider] - Monika Martines MD [Physician] - (keep postop appt.) Discharge Health Status Multidrug resistant organism: No MDRO Provider Discharge Instructions Diet: Diet as Tolerated Food texture: Regular Activity: ambulate 5 times a day Cold/Heat Therapy: ice left hip prn Wound Care Report to your healthcare provider any signs of infection, such as:: chills, fever, increased pain and unusual drainage Dressing: keep dressing on [facility] Reason for rehabilitation: Post-operative therapy Rehab type: Physical therapy Restrictions to mobility: WBAT. posterior hip precautions Visit Report/Discharge Packet Instructions: DI for Hip Replacement Discharge Data Primary Care Provider: Cricket Marinelli Attending Provider: Monika Martines Admit Date/Time: 02/01/18 10:38 Quality VTE Deep Vein Thrombosis/Pulmonary Embolism Present on Admission: No
--- NOTE | 2018-02-04 14:15 | CM.DPC ---
Discharge orders received on patient. Patient is d/c to [facility]. PASSR, signed med list and script faxed. Subsequent Medicare Message signed. Met with patient and she is in agreement with this plan. Plan: D/C to [facility]
--- NOTE | 2018-02-04 14:52 | PC.NURSE ---
1445 Pt transfered to [facility] via w/c. Report was called in to [place] at 1345.
== END 2018-02-04 14:45 | DRG 470 ==
PROVIDERS: Admitting Provider Orthopaedic Surgery; PCP Internal Medicine; Visit Provider Orthopaedic Surgery
PROC: 0SRB0JZ Replacement of Left Hip Joint with Synthetic Substitute, Open Approach (ICD-10-PCS; CPT 27130; principal; 2018-02-01 12:45)
DX: M16.12 Unilateral primary osteoarthritis, left hip (principal); E78.5 Hyperlipidemia, unspecified; F32.9 Major depressive disorder, single episode, unspecified; Z87.891 Personal history of nicotine dependence; E66.01 Morbid (severe) obesity due to excess calories; Z68.37 Body mass index [BMI] 37.0-37.9, adult; R11.2 Nausea with vomiting, unspecified
CPT/HCPCS: 36415; 72170; 73502; 85014; 85018; 97110; 97162; 97530; 97535; C1776; C9290; J0171; J0690; J1100; J2250; J2274; J2405; J2704; J2765; J3010; J3370